=== PATIENT | male | born 1990 | race Caucasian/White ===

== ENCOUNTER 2019-05-22 20:02 | Emergency (ER) | payer SELFPAY ==
[2019-05-22 21:31] VITALS: BP 155/96; PULSE 75
[2019-05-22] MEDS ORDERED: Lidocaine 1% 10 ML MDV INJECT ONE (22:10)
--- NOTE | 2019-05-22 22:33 | EDM.PDOC ---
ED HPI GENERAL MEDICAL PROBLEM - General Chief Complaint: Laceration Stated Complaint: knee laceration Time Seen by Provider: 05/22/19 22:06 Source of Information: Reports: Patient History Limitations: Reports: No Limitations - History of Present Illness INITIAL COMMENTS - FREE TEXT/NARRATIVE: Patient is a 29-year-old male who presents with complaints of laceration to his right medial knee. Patient states that he was doing home-improvement and he hit himself in the knee with the claw of a crowbar. He has full movement of the knee with no numbness and tingling. Tetanus shot has was less than 10 years ago. Right Knee Pain Score (Numeric/FACES): 3 - Related Data Allergies Allergy/AdvReac Type Severity Reaction Status Date / Time amoxicillin Allergy Fever Verified 05/22/19 21:31 Home Meds: Home Meds . [No Known Home Meds] 05/22/19 [History] Past Medical History Genitourinary History: Reports: Renal Calculus - Past Surgical History Male Surgical History: Reports: Other (See Below) Other Male Surgeries/Procedures: lithrotripsy Social & Family History - Tobacco Use Smoking Status *Q: Never Smoker - Caffeine Use Caffeine Use: Reports: None - Living Situation & Occupation Living situation: Reports: , with Spouse Occupation: Employed ED ROS GENERAL - Review of Systems Review Of Systems: Comprehensive ROS is negative, except as noted in HPI. ED EXAM, SKIN/RASH Exam: See Below Exam Limited By: No Limitations General Appearance: Alert, WD/WN, No Apparent Distress Respiratory/Chest: No Respiratory Distress, Lungs Clear, Normal Breath Sounds, No Accessory Muscle Use, Chest Non-Tender Cardiovascular: Normal Peripheral Pulses, Regular Rate, Rhythm, No Edema, No Gallop, No JVD, No Murmur, No Rub Extremities: Other (2 cm laceration approximately 3 cm medial from the kneecap. Laceration extends into the subcutaneous tissue. ) Neurological: Alert, Oriented, CN II-XII Intact, Normal Cognition, Normal Gait, Normal Reflexes, No Motor/Sensory Deficits Psychiatric: Normal Affect, Anxious Skin: Warm, Dry, Intact, Normal Color, No Rash ED SKIN PROCEDURES - Laceration/Wound Repair Right Medial Knee Appearance: Subcutaneous Distal NVT: Neuro & Vascular Intact Anesthetic Type: Local Local Anesthesia - Lidocaine (Xylocaine): 1% Plain Local Anesthetic Volume: 2cc Skin Prep: Chlorhexidine (Hibiciens), Providone-Iodine (Betadine), Saline Exploration/Debridement/Repair: Wound Explored, In a Bloodless Field Closed with: Sutures Lac/Wound length In cm: 2 Suture Size: 4-0 # of Sutures: 4 Suture Type: Nylon Sterile Dressing Applied: Nurse Tetanus Status Addressed: Yes (Up-to-date) Complications: No Course - Vital Signs Last Recorded V/S: Last Vital Signs Temp 97.2 F 05/22/19 21:25 Pulse 75 05/22/19 21:25 Resp 20 05/22/19 21:25 BP 155/96 H 05/22/19 21:25 Pulse Ox 92 L 05/22/19 21:25 - Orders/Labs/Meds Meds: Medications Discontinued Medications Generic Name Dose Route Start Last Admin Trade Name Janet PRN Reason Stop Dose Admin Lidocaine HCl 10 ml 05/22/19 22:10 05/22/19 22:55 Xylocaine 1% INJECT 05/22/19 22:11 10 ml ONETIME ONE Administration Departure - Departure Time of Disposition: 22:32 Disposition: Home, Self-Care 01 Condition: Fair Clinical Impression: Laceration - Discharge Information *PRESCRIPTION DRUG MONITORING PROGRAM REVIEWED*: No *COPY OF PRESCRIPTION DRUG MONITORING REPORT IN PATIENT KENJI: No Instructions: Laceration Care, Adult, [id number] Referrals: Fernando Maxwell MD [Primary Care Provider] - Forms: ED Department Discharge Additional Instructions: You were seen in the emergency department tonight for a 2 cm laceration to your right medial knee. Laceration was closed with 4 sutures. These should remain intact for 10 to 14 days. After that time they can be removed at any clinic. Clean the wound twice a day with normal soap and water. You may shower like normal, however recommend that you do not submerge the wound in water. Watch for signs of infection including increased redness, swelling, or purulent drainage. If any of these should occur, please return to the emergency department or follow-up with a provider in the clinic. Sepsis Event Note - Evaluation Sepsis Screening Result: No Definite Risk - Focused Exam Vital Signs: Vital Signs Temp Pulse Resp BP Pulse Ox 05/22/19 21:25 97.2 F 75 20 155/96 H 92 L Date Exam was Performed: 05/22/19 Time Exam was Performed: 22:56
== END 2019-05-22 22:39 | disposition home or self-care (01) ==
LOC: JD.ED 20:02
DX: S81.011A Laceration without foreign body, right knee, initial encounter (principal); Z88.0 Allergy status to penicillin; W22.8XXA Striking against or struck by other objects, initial encounter; Y93.E9 Activity, other interior property and clothing maintenance; Y92.009 Unspecified place in unspecified non-institutional (private) residence as the place of occurrence of the external cause
CPT/HCPCS: 12001; 99282; J2001

== ENCOUNTER 2022-01-28 17:14 | Emergency (ER) | payer SELFPAY | END 2022-01-28 18:05 | disposition left against medical advice (07) | LOC: JD.ED 17:14 | DX: Z53.21 Procedure and treatment not carried out due to patient leaving prior to being seen by health care provider (principal) ==

== ENCOUNTER 2022-01-29 01:06 | Emergency (ER) | payer SELFPAY ==
[2022-01-29 01:32] VITALS: BP 165/95; PULSE 78
[2022-01-29] MEDS ORDERED: HYDROmorphone 1 MG/ML Syringe IVPUSH ONE (02:09)
[2022-01-29] MEDS ORDERED: Ondansetron 4 MG/2 ML SDV IVPUSH ONE (02:09)
[2022-01-29] MEDS ORDERED: Tamsulosin 0.4 MG Cap.ER PO ONE (02:09)
[2022-01-29] MEDS ORDERED: Ketorolac 30 MG/ML SDV IVPUSH STA (02:09)
[2022-01-29] MEDS ORDERED: Sodium Chloride 0.9% 1,000 ML IV SCH (02:15)
== END 2022-01-29 04:15 | disposition home or self-care (01) ==
LOC: JD.ED 01:06
DX: N20.2 Calculus of kidney with calculus of ureter (principal); E66.9 Obesity, unspecified; Z68.41 Body mass index [BMI] 40.0-44.9, adult; Z88.0 Allergy status to penicillin; Z79.899 Other long term (current) drug therapy
CPT/HCPCS: 74176; 81001; 96361; 96374; 96375; 99284; A9270; J1170; J1885; J2405; J7030